=== PATIENT | female | born 2000 | race Hispanic/Latino ===

== ENCOUNTER → 2019-05-25 | Day surgery (SDC) | payer OTHER ==
[~2019-05-25] MED LIST: FAMOTIDINE20 MG PO; FENTANYL CITRATE/PF 100MCG/2 ML INJ ONE; LIDOCAINE HCL 2% LOCAL INJ 5 ML SDV VIAL INJ ONE; MIDAZOLAM HCL 2 MG/2 ML VIAL ONE; ONDANSETRON PO; PANTOPRAZOLE 40 MG 10ML VIAL ONE; PROPOFOL IV EMULSION 10 MG/ML 50 ML VIAL ONE
--- OUTSIDE RECORDS SUMMARY | 2019-05-25 09:45 | XMS REPORT ---
Author Author Admin, [place] Organization Unknown Address Unknown Phone Unavailable PROBLEMS Condition Status Date Provider Notes GERD active Kennedy Ramsay Yeast infection active Kennedy Ramsay Spontaneous active Kennedy Ramsay Candidal intertrigo active Jasen Pro Photodermatitis active Jasen Pro Other abnormal findings in urine active Bria Arce 16 weeks gestation of active Jasen Pro Obesity active Caren Paz 9 weeks gestation of completed - Caren Paz History of hypothyroidism active Jasen Pro Encounter for supervision of normal first , first trimester active Caren Paz ENCOUNTERS Date Type Provider Location Encounter Diagnosis - Ambulatory Encounter Kennedy Ramsay [facility] UNK - Ambulatory Encounter Kennedy Espino [facility] Spontaneous abortionYeast infectionGERD - Ambulatory Encounter Sagar Troyinto [facility] UNK - Ambulatory Encounter Jasen Pro [facility] UNK - Ambulatory Encounter Araceli Gordillo [facility] History of [id number] weeks gestation of pregnancyPhotodermatitisCandidal intertrigo - Ambulatory Encounter Bria Ortiz [facility] UNK - Ambulatory Encounter Bria Fraser [facility] UNK - Ambulatory Encounter Bria Farser [facility] UNK - Ambulatory Encounter Bria Fraser [facility] UNK - Ambulatory Encounter Serenity Quispe [facility] UNK - Ambulatory Encounter Serenity Quispe [facility] UNK - Ambulatory Encounter Bria Fraser [facility] Iliana Hoffman [facility] 16 weeks gestation of pregnancyOther abnormal findings in urine - Ambulatory Encounter Caren Fabian [facility] Mary Gray [facility] Encounter for supervision of normal first , first trimesterHistory of hypothyroidism9 weeks gestation of pregnancyObesity VITAL SIGNS Date Observation Value Provider oxygen saturation, oximetry 98 % Annelise Espino " method used to obtain blood pressure automatic Annelise Espino " Blood Pressure Position 01 sitting Annelise Espino " blood pressure, site #1 left arm Annelise Espino " blood pressure, diastolic 86 mm[Hg] Annelise Espino " blood pressure, systolic 128 mm[Hg] Annelise Espino " respiratory rate E&M 18 /min Annelise Espino " pulse rate E&M 73 /min Annelise Espino " temperature site oral Annelise Espino " temperature E&M 98.0 [degF] Annelise Espino " weight E&M 237 lbs. Annelise Espino " weight in kilograms E&M 107.73 kg Annelise Espino " height in centimeters E&M 160.02 cm Annelise Espino " height E&M 63 [in_i] Annelise Espino oxygen saturation, oximetry 98 % Sandra Hdez " method used to obtain blood pressure automatic Sandra Hdez " Blood Pressure Position 01 sitting Sandra Hdez " blood pressure, site #1 left arm Sandra Hdez " blood pressure, diastolic 74 mm[Hg] Sandra Hdez " blood pressure, systolic 109 mm[Hg] Sandra Hdez " respiratory rate E&M 20 /min Sandra Hdez " pulse rate E&M 88 /min Sandra Hdez " temperature E&M 98 [degF] Sandra Hdez " weight E&M 227.60 lbs. Sandra Hdez " weight in kilograms E&M 103.45 kg Sandra Hdez " height in centimeters E&M 160.02 cm Sandra Hdez " height E&M 63 [in_i] Sandra Hdez oxygen saturation, oximetry 98 % Gali Collins " blood pressure, diastolic 71 mm[Hg] Gali Collins " blood pressure, systolic 103 mm[Hg] Gali Collins " respiratory rate E&M 19 /min Gali Collins " pulse rate E&M 99 /min Bria Claude " temperature E&M 98.6 [degF] Gali Collins " weight E&M 228.40 lbs. Gali Collins " weight in kilograms E&M 103.82 kg Gali Collins " height in centimeters E&M 160.02 cm Gali Collins " height E&M 63 [in_i] Bria Claude " method used to obtain blood pressure automatic Gali Collins " Blood Pressure Position 01 sitting Gali Collins " blood pressure, site #1 left arm Gali Collins " temperature site oral Gali Collins blood pressure, cuff size Adult 29-42 cm Chely Gray " blood pressure, diastolic 76 mm[Hg] Chely Gray " blood pressure, systolic 115 mm[Hg] Chely Gray " pulse rate E&M 84 /min Chely Gray " oxygen saturation, oximetry 97 % Chely Gray " respiratory rate E&M 18 /min Chely Gray " temperature site temporal Chelyraymon CampoverdeGray " temperature E&M 98.3 [degF] Chely Gray " weight E&M 226.6 lbs. Chely Gray " height E&M 63 [in_i] Chely Gray Allergies No Known Allergy Information REASON FOR REFERRAL Start Date - End Date Service - OB / Receiving Dock Checker - External RESULTS Date Observation Value Provider Reference Range Interpretation Location urine culture MUG [facility] thyroid stimulating hormone, serum 0.570 u[iU]/mL Link[facility] 0.450-4.500 specific gravity, urine 1.025 Chely Gray " pH, urine, semiquantitative 5.0 Chely Gray " glucose, urine, semiquantitative negative Chely Gray " bilirubin, urine negative Chely Gray " ketones, urine, by test strip negative Chely Gray " blood in urine (hemoglobin) by dipstick negative Chely Gray " protein, urine, semiquantitative (dipstick) trace Chely Gray " urobilinogen, urine, semiquantitative (dipstick) 0.2 Chely Gray " nitrite, urine, semiquantitative negative Chely Gray " leukocyte esterase, urine, by dipstick trace Chely Gray " appearance, urine clear Chely Gray " urine color yellow Chely Gray thyroid stimulating hormone, serum 1.240 u[iU]/mL [facility] 0.450-4.500 test, type other clinic Caren Paz " beta HCG, urine, semiquantitative positive Chely Gray " nitrite, urine, semiquantitative Neg Chely Gray " ketones, urine, by test strip Neg Chely Gray " protein, urine, semiquantitative (dipstick) Neg Chely Gray " Herpes Simplex Virus Genital no Chely Gray HISTORY OF IMMUNIZATIONS No Information Available HISTORY OF MEDICATION USE Medication Instructions Dates Provider Comments FAMOTIDINE 20 MG ORAL TABLET one tablet by mouth daily Kennedy Ramsay FLUCONAZOLE 150 MG ORAL TABLET take 1 tablet today then repeat in 72 hours if needed Kennedy Ramsay NYSTATIN 503188 UNIT/GM EXTERNAL CREAM Apply to affected area 4 times a day until 48 hours after it completely resolves Jasen Pro HYDROCORTISONE 1 % EXTERNAL CREAM apply to affected area twice a day for no more than 5 day Jasen Whaleyfoharvinder COMPLETE TABLET Caren Paz PROMETRIUM 200 MG ORAL CAPSULE Take 1 tab by mouth twice a a day through the 12th week of Caren Paz Prescribed by Saritha Martinez GOLF COURSE EQUIPMENT OPERATOR, [facility] SOCIAL HISTORY Date Observation Value Provider drug use, illicit Never Annelise Espino " alcohol use Never Annelise Espino " social history E&M none Annelise Espino " social history reviewed E&M reviewed today Annelise Espino " sexual orientation heterosexual Annelise Espino " passive cigarette smoke exposure No Annelise Espino " smoking status never smoker Annelise Espino " Exercise Program Referral T Annelise Espino " Weight Management Counseling Provided T Annelise Espino " Nutrition intervention T Annelise Espino Exercise Program Referral T Jasen Pro " Weight Management Counseling Provided T Jasen Pro " Nutrition intervention T Jasen Pro " drug use, illicit Never Sandra Hdez " alcohol use Never Sandra Dhez " social history E&M none Sandra Hdez " social history reviewed E&M reviewed today Sandra Hdez " sexual orientation heterosexual Sandra Hdez " passive cigarette smoke exposure No Sandra Hdez " smoking status never smoker Sandra Hdez time of call 10/18/2018 3:08 PM Joann Ortiz is there any chance that you could be ? No Gali Collins " passive cigarette smoke exposure No Gali Collins " sexual orientation heterosexual Gali Collins " social history E&M none Gali Collins " social history reviewed E&M reviewed today Glai Collins currently in sexual relationship with only one partner at a time Caren Paz " sexual orientation heterosexual Caren Paz " social history E&M none Caren Paz " cat exposure during no Chely Gray " Have you traveled to any zika virus infected areas? No Chely Gray FUNCTIONAL STATUS No Information Available MENTAL STATUS Date Observation Value Provider assessment of judgment and insight E&M intact Kennedy Ramsay " mental status examination: orientation E&M oriented to time, place, and person Kennedy Ramsay " assessment of mood and affect E&M no depression, anxiety, or agitation Kennedy Ramsay " Generalized Anxiety Disorder Questionnaire - Question 2 0 Annelise Espino " Generalized Anxiety Disorder Questionnaire - Question 1 0 Annelise Espino assessment of judgment and insight E&M intact Jasen Pro " mental status examination: orientation E&M oriented to time, place, and person Jasen Renteriauz " assessment of mood and affect E&M no depression, anxiety, or agitation Jasenmarilynn Pro " Generalized Anxiety Disorder Questionnaire - Question 2 0 Sandra Hdez " Generalized Anxiety Disorder Questionnaire - Question 1 0 Sandra Hdez assessment of judgment and insight E&M intact Bria Claude " assessment of mood and affect E&M no depression, anxiety, or agitation Bria Claude " Generalized Anxiety Disorder Questionnaire - Question 2 0 Gali Collins " Generalized Anxiety Disorder Questionnaire - Question 1 0 Gali Collins assessment of mood and affect E&M no depression Caren Sunjoanne " mental status examination: recall E&M recent and remote memory intact Carenmariano Paz " mental status examination: orientation E&M alert Caren Paz " assessment of judgment and insight E&M normal judgement and insight Caren Sunjoanne MEDICAL EQUIPMENT No Information Available FAMILY HISTORY No Information Available INSURANCE PROVIDERS No Information Available ADVANCE DIRECTIVES No Information Available TREATMENT PLAN Date Name Helicobacter Pylori Urea Breath Test Urine Culture, Routine TSH Rfx on Abnormal to Free T4 TSH Rfx on Abnormal to Free T4 - tania Est Patient Exp Problem - 39110 Est Patient Exp Problem - 77961 Est Patient Exp Problem - 66530 MFM/Consultation New Patient Detailed - 46449 HISTORY OF PROCEDURES Procedure Date Procedure Name Provider Procedure Notes Status MFM/Consultation Mary Easley Reason for Consultation: 18 y/o at 9w2d by LMP JAX 04/03/19 obesity and hypothyroidism completed GOALS No Information Available HEALTH CONCERNS No Information Available
--- OUTSIDE RECORDS SUMMARY | 2019-05-25 09:45 | XMS REPORT ---
Author Author Admin, [place] Organization Unknown Address Unknown Phone Unavailable PROBLEMS Condition Status Date Provider Notes GERD active Kennedy Ramsay Yeast infection active Kennedy Ramsay Spontaneous active Kennedy Ramsay Candidal intertrigo active Jasen Pro Photodermatitis active Jasen Pro Other abnormal findings in urine active Bria Claude 16 weeks gestation of active Jasen Pro Obesity active Caren Paz 9 weeks gestation of completed - Caren Paz History of hypothyroidism active Jasen Pro Encounter for supervision of normal first , first trimester active Caren Paz ENCOUNTERS Date Type Provider Location Encounter Diagnosis - Ambulatory Encounter Meagana Gordillo [facility] - Ambulatory Encounter [facility] Desktop [facility] Kennedy Ramsay [facility] UNK - Ambulatory Encounter Kennedy Ramsay [facility] UNK - Ambulatory Encounter Kennedy Blumria Rand Espino [facility] Spontaneous abortionYeast infectionGERD - Ambulatory Encounter Silviamaria Gordillo [facility] - Ambulatory Encounter Jasen Pro [facility] UNK - Ambulatory Encounter Araceli M Ehdaie [facility] History of [id number] weeks gestation of pregnancyPhotodermatitisCandidal intertrigo - Ambulatory Encounter Bria Arce Sonam Arnol Joann Ortiz [facility] UNK - Ambulatory Encounter Bria Arce [facility] UNK - Ambulatory Encounter Bria Arce [facility] UNK - Ambulatory Encounter Bria Arce [facility] UNK - Ambulatory Encounter [facility] - Ambulatory Encounter Serenity Quispe [facility] UNK - Ambulatory Encounter Bria Hoffman [facility] 16 weeks gestation of pregnancyOther abnormal findings in urine - Ambulatory [facility] Mary Fabian [place] [facility] Encounter for supervision of normal first , [...] " blood pressure, diastolic 71 mm[Hg] Gali Dennis " blood pressure, systolic 103 mm[Hg] Gali Dennis " respiratory rate E&M 19 /min Gali [...] " blood pressure, site #1 left arm Galilaura Collins " temperature site oral Gali Collins blood pressure, cuff size Adult 29-42 cm Chely Gray " blood pressure, diastolic 76 mm[Hg] Chely Gray " blood pressure, systolic 115 mm[Hg] Chely Gray " pulse rate E&M 84 /min Chely Gray " oxygen saturation, oximetry 97 % Chely Gray " respiratory rate E&M 18 /min Chely Gray " temperature site temporal Chely Gray " temperature E&M 98.3 [degF] Chely Gray " weight E&M 226.6 lbs. Chely Gray " height E&M 63 [in_i] Chely Gray Allergies No Known Allergy Information REASON FOR REFERRAL Start Date - End Date Service - OB / Cocktail Lounge Manager - External RESULTS Date Observation Value Provider Reference Range Interpretation Location urine culture MUG [facility] thyroid stimulating hormone, serum 0.570 u[iU]/mL [facility] 0.450-4.500 specific gravity, urine 1.025 Chely Gray [...] " protein, urine, semiquantitative (dipstick) Neg Chely Isaac " Herpes Simplex Virus Genital no Chely Gray HISTORY OF IMMUNIZATIONS No Information Available HISTORY OF MEDICATION USE Medication Instructions Dates Provider Comments FAMOTIDINE 20 MG ORAL TABLET one tablet by mouth daily Kennedy Ramsay FLUCONAZOLE 150 MG ORAL TABLET take 1 tablet today then repeat in 72 hours if needed Kennedy Ramsay NYSTATIN 852641 UNIT/GM EXTERNAL CREAM Apply to affected area [...] of Caren Paz Prescribed by Saritha Martinez STATION SUPERINTENDENT, [facility] SOCIAL HISTORY Date Observation Value Provider [...] " social history reviewed E&M reviewed today Gali Dennis currently in sexual relationship with only one partner at a time Caren Sung " sexual orientation heterosexual Caren Sung " social history E&M none Caren Vonnieg " cat exposure during no Chely Gray [...] of judgment and insight E&M intact Jasen Juddpolo " mental status examination: orientation E&M oriented to time, place, and person Jasen Juddfouz " assessment of mood and affect E&M no depression, anxiety, or agitation Jasen Juddfouz " Generalized Anxiety Disorder Questionnaire - Question [...] mood and affect E&M no depression Caren Sung " mental status examination: recall E&M recent and remote memory intact Caren Sung " mental status examination: orientation E&M alert Caren Sung " assessment of judgment and insight E&M normal judgement and insight Caren Sung MEDICAL EQUIPMENT No Information Available FAMILY HISTORY No Information Available INSURANCE PROVIDERS No Information Available ADVANCE DIRECTIVES No Information Available TREATMENT PLAN Date Name Helicobacter Pylori Urea Breath Test Urine Culture, Routine TSH Rfx on Abnormal to Free T4 TSH Rfx on Abnormal to Free T4 - - tania Est Patient Exp Problem - 54245 Est Patient Exp Problem - 25807 Est Patient Exp Problem - 89185 MFM/Consultation New Patient Detailed - 65535 HISTORY OF PROCEDURES Procedure Date Procedure Name Provider Procedure Notes Status MFM/Consultation Mary Easley Reason for Consultation: 18 y/o at 9w2d by LMP JAX 04/03/19 obesity and hypothyroidism completed GOALS No Information Available HEALTH CONCERNS No Information Available
--- OUTSIDE RECORDS SUMMARY | 2019-05-25 09:45 | XMS REPORT ---
Author Author Admin, [place] Organization Unknown Address Unknown Phone Unavailable PROBLEMS Condition Status Date Provider Notes GERD active Kennedy Ramsay Yeast infection active Kennedy Ramsay Spontaneous active Kennedy Ramsay Candidal intertrigo active Jasen Pro Photodermatitis active Jasen Pro Other abnormal findings in urine active Bria Arce 16 weeks gestation of active Jasen Pro Obesity active Caren aPz 9 weeks gestation of completed - Caren Paz History of hypothyroidism active Jasen Pro Encounter for supervision of normal first , first trimester active Caren Paz ENCOUNTERS Date Type Provider Location Encounter Diagnosis - Ambulatory Encounter Kennedy Ramsay [facility] UNK - Ambulatory Encounter Kennedy Espino [facility] Spontaneous abortionYeast infectionGERD - Ambulatory Encounter Sagar Troyinto [employer] UNK - Ambulatory Encounter Jasen Pro [facility] UNK - Ambulatory Encounter Araceli Gordillo [facility]nn [facility] History of [id number] weeks gestation of pregnancyPhotodermatitisCandidal intertrigo - Ambulatory Encounter Bria Ortiz [facility] UNK - Ambulatory Encounter Bria Fraser [facility] UNK - Ambulatory Encounter Bria Fraser [facility] UNK - Ambulatory Encounter Bria Fraser [facility] UNK - Ambulatory Encounter Serenity Quispe [facility] UNK - Ambulatory Encounter Serenity Quispe [facility] UNK - Ambulatory Encounter Bria Fraser [facility] Iliana Hoffman [facility] 16 weeks gestation of pregnancyOther abnormal findings in urine - Ambulatory Encounter Caren Fabian Counts include [facility] beds at the [facility] - [facility] Mary Gray [facility] Encounter for supervision of normal first [...] Collins " Blood Pressure Position 01 sitting Glai Collins " blood pressure, site #1 left [...] - End Date Service - OB / Home Care Attendant - External RESULTS Date Observation Value Provider [...] 72 hours if needed Kennedy Ramsay NYSTATIN 315679 UNIT/GM EXTERNAL CREAM Apply to affected area [...] of Caren Paz Prescribed by Saritha Martinez BRAKE OPERATOR HEAVY DUTY, [facility] SOCIAL HISTORY Date Observation Value Provider drug use, illicit Never Annelise Espino " alcohol use Never Annelise Espino " social history E&M none Annelise Espino " social history reviewed E&M reviewed today Annelise Espino " sexual orientation heterosexual Annelise Espino " passive cigarette smoke exposure No Annelise Espino " smoking status never smoker Annelise Esipno " Exercise Program Referral T Annelise Espino " Weight Management Counseling Provided T Annelise Espino " Nutrition intervention T Annelise Espino Exercise Program Referral T Jasen Pro " Weight Management Counseling Provided T Jasen Pro " Nutrition intervention T Jasen Pro " drug use, illicit Never Sandra Hdez " alcohol use Never Asndra Hdez " social history E&M none Sandra Hdez [...] social history reviewed E&M reviewed today Gali Collins currently in sexual relationship with only [...] Anxiety Disorder Questionnaire - Question 2 0 aGli Collins " Generalized Anxiety Disorder Questionnaire - [...] - tania Est Patient Exp Problem - 90192 Est Patient Exp Problem - 23747 Est Patient Exp Problem - 00960 MFM/Consultation New Patient Detailed - 45274 HISTORY OF PROCEDURES Procedure Date Procedure Name Provider Procedure Notes Status MFM/Consultation Mary Easley Reason for Consultation: 18 y/o at 9w2d by LMP JAX 04/03/19 obesity and hypothyroidism completed GOALS No Information Available HEALTH CONCERNS No Information Available
--- OUTSIDE RECORDS SUMMARY | 2019-05-25 09:45 | XMS REPORT ---
Author Author Admin, [place] Organization [facility] Address [address] [place] [address] Phone Allergies, Adverse Reactions, Alerts Allergy Name Reaction Description Start Date Severity Status Provider No Known Allergies Sandra Hdez ANNABEL Conditions or Problems Problem Name Problem Code Onset Date Status Entry Date Provider Comment Standard Description Annotate Candidal intertrigo 112.3 Active Araceli Cristobal D.O. 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 Acute dermatitis due to solar radiation 16 weeks gestation of V28.9 Active Araceli Cristobal D.O. Encounter for unspecified screening of mother Other abnormal findings in urine Active Bria Arce MD Encounter for supervision of normal first , first trimester Active Mary Easley MD Supervision of normal first History of hypothyroidism V12.29 Active Araceli Cristobal D.O. Personal history of other endocrine, metabolic, and immunity disorders Obesity 278.00 Active Mary Easley MD Obesity, unspecified 14 weeks gestation of V28.9 Inactive Bria Arce MD Encounter for unspecified screening of mother 9 weeks gestation of V28.9 Inactive Mary Easley MD Encounter for unspecified screening of mother 9 weeks gestation of ICD-V28.9 Inactive Caren Paz MD (res) Hypothyroidism 244.9 Inactive Mary Easley MD Unspecified hypothyroidism Medication List Medication Instructions Start Date Stop Date Generic Name NDC Status Provider Patient Instruction NYSTATIN 633397 UNIT/GM EXTERNAL CREAM Apply to affected area 4 times a day until 48 hours after it completely resolves NYSTATIN 59970509218 Active Jasen Pro MD (res) Active HYDROCORTISONE 1 % EXTERNAL CREAM apply to affected area twice a day for no more than 5 day HYDROCORTISONE 98041349165 Active Jasen Pro MD (res) Active COMPLETE TABLET VIT-FE FUMARATE-FA TABS 61296557886 Active Mary Easley MD Active PROMETRIUM 200 MG ORAL CAPSULE Take 1 tab by mouth twice a a day through the 12th week of PROGESTERONE MICRONIZED 01749122764 Active Mary Easley MD Active Vital Signs Date Name Value Unit Range Description blood pressure, diastolic 74 mm[Hg] BP hector blood pressure, systolic 109 mm[Hg] BP sys height E&M 63 [in_us] Bdy height pulse rate E&M 88 /min Heart rate respiratory rate E&M 20 /min Resp rate temperature E&M 98 [degF] Body temperature weight E&M 227.60 [lb_av] Weight Measured blood pressure, diastolic 71 mm[Hg] BP hector blood pressure, systolic 103 mm[Hg] BP sys height E&M 63 [in_us] Bdy height pulse rate E&M 99 /min Heart rate respiratory rate E&M 19 /min Resp rate temperature E&M 98.6 [degF] Body temperature weight E&M 228.40 [lb_av] Weight Measured blood pressure, diastolic 76 mm[Hg] BP hector blood pressure, systolic 115 mm[Hg] BP sys height E&M 63 [in_us] Bdy height pulse rate E&M 84 /min Heart rate respiratory rate E&M 18 /min Resp rate temperature E&M 98.3 [degF] Body temperature weight E&M 226.6 [lb_av] Weight Measured Diagnostic Results Date Name Value Unit Range Description Office Visit: Adult Followup 1 - Urinalysis urine color yellow Lab Report: Urine Culture, Routine, Result - Urinalysis urine culture MUG Office Visit: Adult Followup 1 - Urinalysis bilirubin, urine negative Lab Report: TSH Rfx on Abnormal to Free T4 - Chemistry thyroid stimulating hormone, serum 0.570 u[iU]/mL 0.450-4.500 Office Visit: Initial Maternity - Dr Paz - [place] estimated date of confinement , mother of baby 04/03/2019 Office Visit: Adult Followup 1 - Urinalysis glucose, urine, semiquantitative negative protein, urine, semiquantitative (dipstick) trace Office Visit: Initial Maternity - Dr Paz - Chemistry beta HCG, urine, semiquantitative positive Office Visit: Initial Maternity - Dr Paz - Genetics/fertility test, type other clinic Office Visit: Adult Followup 1 - Urinalysis blood in urine (hemoglobin) by dipstick negative appearance, urine clear leukocyte esterase, urine, by dipstick trace urobilinogen, urine, semiquantitative (dipstick) 0.2 specific gravity, urine 1.025 pH, urine, semiquantitative 5.0 Office Visit: Initial Maternity - Dr Paz - Microbiology Herpes Simplex Virus Genital no Office Visit: Adult Followup 1 - Urinalysis nitrite, urine, semiquantitative negative Office Visit: Initial Maternity - Dr Paz - [place] estimated delivery date by last menstrual period 04/03/2019 Office Visit: Adult Followup 1 - Urinalysis ketones, urine, by test strip negative Encounters Date Encounter Provider Code Facility 22:15:09 CDT Est Patient Exp Problem - 10558 Araceli Cristobal D.O. CPT-14351 [facility] 17:51:24 CDT Est Patient Exp Problem - 16545 Bria Arce MD CPT-12480 [facility] 11:28:20 CDT New Patient Detailed - 04290 Caren Paz MD (res) CPT-34996 [facility]
--- OUTSIDE RECORDS SUMMARY | 2019-05-25 09:45 | XMS REPORT ---
Author Author Admin, [place] Organization Unknown Address Unknown Phone Unavailable PROBLEMS Condition Status Date Provider Notes GERD active Kennedy Ramsay Yeast infection active Kennedy Ramsay Spontaneous active Kennedy Ramsay Candidal intertrigo active Jasen Pro Photodermatitis active Jasen Pro Other abnormal findings in urine active Bria Claude 16 weeks gestation of active Jasen Mahfouz Obesity active Caren Paz 9 weeks gestation of completed - Caren Paz History of hypothyroidism active Jasen Pro Encounter for supervision of normal first , first trimester active Caren Paz ENCOUNTERS Date Type Provider Location Encounter Diagnosis - Ambulatory Encounter Sonam Wagner [facility]K - Ambulatory Encounter Silviamaria Gordillo [place] [employer] UNK - Ambulatory Encounter [facility] Desktop [employer] Kennedy Ramsay [facility] UNK - Ambulatory Encounter Kennedy Ramsay [facility] UNK - Ambulatory Encounter Kennedy Rhodesa Rand Espino [facility] Spontaneous abortionYeast infectionGERD - Ambulatory Encounter Silviamaria Gordillo [place] [employer] UNK - Ambulatory [facility] History of [id number] weeks gestation of pregnancyPhotodermatitisCandidal intertrigo - Ambulatory Encounter Bria Ortiz [facility] UNK - Ambulatory Encounter Bria Arce [facility] UNK - Ambulatory Encounter Bria Fraser Claude [facility] UNK - Ambulatory Encounter Bria Fraser Claude [facility] UNK - Ambulatory Encounter Serenity Quispe [facility] UNK - Ambulatory Encounter Serenity Quispe [facility] UNK - Ambulatory Encounter Bria Hoffman [facility] 16 weeks gestation of pregnancyOther abnormal findings in urine - [facility] Mary Fabian [place] [facility] Encounter for supervision of normal first [...] method used to obtain blood pressure automatic Galilaura Collins " Blood Pressure Position 01 sitting [...] - End Date 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 - External RESULTS Date Observation Value Provider [...] 72 hours if needed Kennedy Ramsay NYSTATIN [id number] UNIT/GM EXTERNAL CREAM Apply to affected area 4 times a day until 48 hours after it completely resolves Jasen Pro HYDROCORTISONE 1 % EXTERNAL CREAM apply to affected area twice a day for no more than 5 day Jasen Pro COMPLETE TABLET Caren Paz PROMETRIUM 200 MG ORAL CAPSULE Take 1 tab by mouth twice a a day through the 12th week of Caren Paz Prescribed by Saritha Martinez 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, [facility] SOCIAL HISTORY Date Observation Value Provider time of call 05/17/2019 2:13 PM Michaela Wagner drug use, illicit Never Annelise Espino " [...] " Weight Management Counseling Provided T Jasen rPo " Nutrition intervention T Jasen Pro " drug use, illicit Never Sandra Hdez " alcohol use Never Sandra Hdez " social history E&M none Sandra Hdez " social history reviewed E&M reviewed today Sandra Hdez " sexual orientation heterosexual Sandra Hdez " passive cigarette smoke exposure No Sandra Hdez " smoking status never smoker Sandra Hdez time of call 10/18/2018 3:08 PM Joann Angel is there any chance that you could [...] Sung " social history E&M none Caren Sung " cat exposure during no Chely Gray [...] oriented to time, place, and person Jasen Whaleyfouz " assessment of mood and affect E&M no depression, anxiety, or agitation Jasen Mahfouz " Generalized Anxiety Disorder Questionnaire - Question 2 0 Sandra Hdez " Generalized Anxiety Disorder Questionnaire - Question 1 0 Sandra Hdez assessment of judgment and insight E&M intact Bria Cluade " assessment of mood and affect E&M [...] - tania Est Patient Exp Problem - 42483 Est Patient Exp Problem - 73735 Est Patient Exp Problem - 00062 MFM/Consultation New Patient Detailed - 12225 HISTORY OF PROCEDURES Procedure Date Procedure Name Provider Procedure Notes Status MFM/Consultation Mary Easley Reason for Consultation: 18 y/o at 9w2d by LMP JAX 04/03/19 obesity and hypothyroidism completed GOALS No Information Available HEALTH CONCERNS No Information Available
[2019-05-25 14:30] VITALS: BP 105/63
--- NOTE | 2019-05-25 20:20 | Operative Report ---
DATE OF PROCEDURE: 05/25/2019 SURGEON: Gokul Aldana MD PROCEDURE: EGD with biopsies. INDICATIONS FOR EGD: Upper abdominal pain, nausea. MEDICATIONS: The patient was done under MAC, please see anesthesiologist's note. PROCEDURE IN DETAIL: With the patient in the left lateral decubitus position, a flexible fiberoptic Olympus gastroscope was introduced into the esophagus under direct visualization without any difficulty. There was some patchy erythema noted in distal esophagus. The scope was then advanced with ease into the stomach. Mucosa overlying the antrum and the body revealed some diffuse erythema and moderate edema, and biopsies were obtained and sent to stain for H. pylori. Pylorus was of normal contour and shape, was intubated with ease and the scope was advanced all the way to the second portion of the duodenum. Biopsies were obtained from the proximal second portion and the duodenal bulb to rule out sprue. The scope was then withdrawn back into the stomach and retroflexed, mucosa overlying the fundus and the cardia appeared to be within normal limits. The scope was then straightened out, it was subsequently withdrawn, and the patient tolerated the procedure well. IMPRESSION: 1. Distal esophagitis, mild. 2. Gastritis, biopsied, biopsies sent to stain for Helicobacter pylori. 3. Rule out sprue. PLAN: Follow up histology. Initiate Protonix 40 mg 1 p.o. q.a.m. before meals. If the patient's symptoms persist, we will proceed with a HIDA scan with ejection fraction. Gokul Aldana MD [facility] /[id number] cc: [facility]
== END | disposition home or self-care (01) ==
LOC: OR 09:42
PROVIDERS: ATTEND Internal Medicine Gastroenterology
DX: K29.70 Gastritis, unspecified, without bleeding (principal); K22.8 Other specified diseases of esophagus; K20.9 Esophagitis, unspecified; B96.81 Helicobacter pylori [H. pylori] as the cause of diseases classified elsewhere; K80.80 Other cholelithiasis without obstruction; D72.820 Lymphocytosis (symptomatic); E66.9 Obesity, unspecified; Z68.41 Body mass index [BMI] 40.0-44.9, adult
CPT/HCPCS: 43239; 81025; J2001; J2250; J3010